=== PATIENT | male | born 1990 | race Caucasian/White ===

== ENCOUNTER 2017-08-14 19:52 | Emergency (ER) | payer MEDICAID ==
[2017-08-14 21:02] LABS: APPEARANCE,URINE CLEAR; BILIRUBIN,URINE NEGATIVE (NEGATIVE); COLOR,URINE STRAW; GLUCOSE, URINE >=500 mg/dL (NEGATIVE); KETONES,URINE NEGATIVE (NEGATIVE); LEUKOCYTE ESTERASE,URINE NEGATIVE (NEGATIVE); NITRITE,URINE NEGATIVE (NEGATIVE); PROTEIN,URINE NEGATIVE (NEGATIVE); URINE SPECIFIC GRAVITY 1.035; UROBILINOGEN,URINE NEGATIVE mg/dL (<2.0)
[2017-08-14 21:18] LABS: ABSOLUTE BASOPHILS # (AUTO) 0.1 10^3/uL (0.0-0.2); ABSOLUTE EOSINOPHILS # (AUTO) 0.3 10^3/uL (0.0-0.6); ABSOLUTE NEUT (AUTO) 5.3 10^3/uL (1.7-8.2); BASOPHILS % (AUTO) 0.9 % (0-2); EOSINOPHILS % (AUTO) 3.1 % (0-6); HEMOGLOBIN 15.9 g/dL (13.5-17.0); LYMPHOCYTES % (AUTO) 37.2 % (13-45); MEAN CORPUSCULAR HEMOGLOBIN 28.3 pg (27.0-33.4); MEAN CORPUSCULAR HGB CONC 34.6 g/dL (32.0-36.0); MEAN CORPUSCULAR VOLUME 82 fl (80-97); MONOCYTES % (AUTO) 8.9 % (3-13); PLATELET COUNT 271 10^3/uL (150-450); RED BLOOD COUNT 5.62 10^6/uL (4.35-5.55); RED CELL DISTRIBUTION WIDTH 13.7 % (11.5-14.0); SEGMENTED NEUTROPHILS % (AUTO) 49.9 % (42-78); TOTAL CELLS COUNTED % (AUTO) 100 %; VENOUS BLOOD BASE EXCESS 1.3 mmol/L; VENOUS BLOOD HCO3 26.5 mmol/L (20-32); VENOUS BLOOD PCO2 44.1 mmHg (35-63); VENOUS BLOOD PH 7.4 (7.30-7.42); WHITE BLOOD COUNT 10.7 10^3/uL (4.0-10.5)
[2017-08-14] MEDS ORDERED: METFORMIN HCL 500 MG TABLET PO ONE (21:27)
[2017-08-14] MEDS ORDERED: GLIPIZIDE 5 MG TABLET PO ONE (21:27)
--- NOTE | 2017-08-14 21:33 | ER Document Report ---
ED General - General Chief Complaint: High Blood Sugar Stated Complaint: POSSIBLE HIGH BLOOD SUGAR Time Seen by Provider: 08/14/17 20:44 Notes: Patient is a 27-year-old male with a past medical history of involvement of the leg, obesity, who presents with polyuria, polydipsia and hyperglycemia. Mother notes that over the past several months she has noted that her son has been drinking a lot of water and urinating. She notes that he also complained of what appeared to be a yeast infection at the head of his penis which made her very concerned that he could possibly be developing diabetes. She checked his blood sugar at home and found it to be 480 with possible positive ketones prompting her to bring to the emergency department. He has no known history of diabetes. Patient states that there is a mild, burning, constant irritation to the is that is been present for the past several days to weeks. Nothing seems to improve or worsen his symptoms. He denies any history of similar symptoms in the past. TRAVEL OUTSIDE OF THE [place] IN LAST 30 DAYS: No - Related Data Allergies/Adverse Reactions: No Known Allergies Allergy (Unverified 06/26/15 17:02) Past Medical History - General Information source: Patient, Parent - Social History Smoking Status: Never Smoker Frequency of alcohol use: None Drug Abuse: None Lives with: Parents Family History: Reviewed & Not Pertinent Patient has suicidal ideation: No Patient has homicidal ideation: No Renal/ Medical History: Denies: Hx Peritoneal Dialysis Psychiatric Medical History: Reports: Hx Attention Deficit Hyperactivity Disorder, Hx Bipolar Disorder, Hx Depression, Hx Schizoaffective Disorder - Immunizations Hx Diphtheria, Pertussis, Tetanus Vaccination: Yes - 2014 Review of Systems - Review of Systems Notes: Constitutional: Negative for fever. HENT: Negative for sore throat. Eyes: Negative for visual changes. Cardiovascular: Negative for chest pain. Respiratory: Negative for shortness of breath. Gastrointestinal: Negative for abdominal pain, vomiting or diarrhea. Genitourinary: Positive for penile head irritation and discharge Musculoskeletal: Negative for back pain. Skin: Negative for rash. Neurological: Negative for headaches, weakness or numbness. 10 point ROS negative except as marked above and in HPI. Physical Exam - Vital signs Vitals: Temp Pulse Resp BP Pulse Ox 98.7 F 107 H 16 150/93 H 98 08/14/17 20:23 08/14/17 20:23 08/14/17 20:23 08/14/17 20:23 08/14/17 20:23 Interpretation: Hypertensive, Tachycardic Notes: PHYSICAL EXAMINATION: GENERAL: Well-appearing, well-nourished and in no acute distress. HEAD: Atraumatic, normocephalic. EYES: Pupils equal round and reactive to light, extraocular movements intact, sclera anicteric, conjunctiva are normal. ENT: nares patent, oropharynx clear without exudates. Moist mucous membranes. NECK: Normal range of motion, supple without lymphadenopathy LUNGS: Breath sounds clear to auscultation bilaterally and equal. No wheezes rales or rhonchi. HEART: Regular rate and rhythm without murmurs ABDOMEN: Soft, nontender, normoactive bowel sounds. No guarding, no rebound. No masses appreciated. : Mild erythema of the head of the penis as well as the base of the foreskin with a small amount of clearish white discharge. EXTREMITIES: Normal range of motion, no pitting or edema. No cyanosis. NEUROLOGICAL: No focal neurological deficits. Moves all extremities spontaneously and on command. PSYCH: Apparent developmental delay. Normal mood, normal affect. SKIN: Warm, Dry, normal turgor, no rashes or lesions noted. Course - Re-evaluation Re-evalutation: 08/14/17 21:29 Presentation of a well-appearing 27-year-old male in no acute distress with new onset type 2 diabetes. There is no evidence of HHS or diabetic ketoacidosis on laboratories or based on clinical history. Patient's vitals are within normal limits. Patient's only focal complaint is foreskin and penile head irritation. Examination reveals findings consistent with balanitis without any evidence of phimosis or paraphimosis. Patient was started on glipizide as well as metformin and has been encouraged to continue losing weight as he is apparently already had a 10-20 pound weight loss over the past several months and has been working to improve his dietary habits. I have however inform the patient that he may require insulin to maintain appropriate blood sugar control and have encouraged him strongly follow-up closely with his primary care doctor. Patient does have primary care follow-up. At this time will discharge with return precautions and follow-up recommendations. Verbal discharge instructions given a the bedside and opportunity for questions given. Medication warnings reviewed. Patient is in agreement with this plan and has verbalized understanding of return precautions and the need for primary care follow-up in the next 24-72 hours. - Vital Signs Vital signs: Temp Pulse Resp BP Pulse Ox 98.6 F 96 18 136/86 H 95 08/14/17 21:49 08/14/17 21:49 08/14/17 21:49 08/14/17 21:49 08/14/17 21:49 - Laboratory Result Diagrams: 08/14/17 21:05 08/14/17 21:05 Laboratory results interpreted by me: 08/14/17 08/14/17 08/14/17 20:30 20:41 21:05 WBC 10.7 H RBC 5.62 H Chloride Glucose POC Glucose 357 H Hemoglobin A1c % Calcium Urine Glucose (UA) >=500 H 08/14/17 08/14/17 21:05 21:05 WBC RBC Chloride 95 L Glucose 371 H POC Glucose Hemoglobin A1c % 12.8 H Calcium 10.7 H Urine Glucose (UA) Discharge - Discharge Clinical Impression: Balanitis, Hyperglycemia Type 2 diabetes mellitus Qualifiers: Diabetes mellitus facing baster insulin use: without prison use Diabetes mellitus complication status: with unspecified complications Qualified Code(s): E11.8 - Type 2 diabetes mellitus with unspecified complications Condition: Good Disposition: HOME, SELF-CARE Additional Instructions: You need to followup urgently with your primary care doctor as your blood sugars were dangerously high today. You did not have any evidence of a dangerous condition associated with these blood sugars at this time. However, it is very important that you get your blood sugars under control. Your being started on 2 different medications to lower your blood sugar 1 of which is called glipizide which she will take 5 mg daily and the other which is metformin which you will begin taking 500 mg twice daily. The doses of these medicines will likely go up over time to continue to bring your blood sugar under control. You should avoid foods that are high in carbohydrates and sugary foods. Losing weight will also help to better control your blood sugars. You are also being started on a topical antifungal cream for the fungal infection on the head of your penis and foreskin. Please return to emergency department immediately if you develop weakness, persistent vomiting, confusion, or any other symptoms that are concerning to you. Prescriptions: Clotrimazole 1% Topical [Lotrimin 1% Topical Soln 10 ml] 1 applic TP BID 21 Days #50 ml Glipizide [Glipizide Xl] 5 mg PO DAILY #30 tab.er.24 Metformin HCl [Glucophage 500 mg Tablet] 500 mg PO BID #60 tablet
[2017-08-14 21:34] LABS: ANION GAP 15 (5-19); BLOOD UREA NITROGEN 9 mg/dL (7-20); CALCIUM 10.7 mg/dL (8.4-10.2); CARBON DIOXIDE 29 mmol/L (22-30); CHLORIDE 95 mmol/L (98-107); GLUCOSE 371 mg/dL (75-110); POTASSIUM 4.1 mmol/L (3.6-5.0); SODIUM 138.8 mmol/L (137-145)
[2017-08-14 21:51] VITALS: BP 136/86
== END 2017-08-14 21:49 | disposition home or self-care (01) ==
LOC: ER 19:52
DX: N48.1 Balanitis (principal); E11.65 Type 2 diabetes mellitus with hyperglycemia; R35.8 Other polyuria; R63.1 Polydipsia
CPT/HCPCS: 99285; 36415; 82962; 85025; 80048; 81001; 83036; 82803; J3490 ×2